=== PATIENT | female | born 1940 | race Caucasian/White ===

== ENCOUNTER → 2020-04-13 | Outpatient (CLI) | payer MEDICARE, OTHER ==
[~2020-04-13] MED LIST: AMOCLA875 PO; CALCIUM 600 +1 EAC6 PO; OMEP20ER PO; ONDA4ODT MM; PANT20 PO; PHAZYME250 MG PO; PRAV20 PO; Vitamin D2000 UNIT PO
[2020-04-13 12:55] LABS: Source, Urine Clean Catch
[2020-04-13 14:26] LABS: Appearance, Urine Clear (Clear); Bilirubin, Urine Neg (Neg); Blood, Urine 1+ (Neg); Color, Urine Yellow (P-Yellow); Glucose Qualitative, Urine Neg (Neg); Ketones, Urine Neg (Neg); Leukocyte Esterase, Urine 2+ (Neg); Nitrite, Urine Neg (Neg); Protein, Urine Neg (Neg); Urobilinogen, Urine NORM (Normal)
[2020-04-13 14:49] LABS: Bacteria Rare /hpf; Red Blood Cells, Urine Not Seen /hpf (0-2); Squamous Epithelial Cells Few /hpf (Few); White Blood Cells, Urine 0-2 /hpf (0-5)
== END | disposition home or self-care (01) ==
LOC: LAB SHORT 12:53 → LAB 12:53
PROVIDERS: Family Medicine
DX: R30.0 Dysuria (principal)
CPT/HCPCS: 81001; 87086

== ENCOUNTER 2020-06-08 12:17 | Day surgery (SDC) | payer MEDICARE, OTHER ==
[~2020-06-08] VITALS: Ht 154.9 cm; Wt 63.2 kg
--- NOTE | 2020-06-08 13:26 | NUR ---
06/08/20 [id number] Ashley Aldrich DISCUSSED WITH DR LORENZO THAT THE IV THAT WAS PLACED IS ONLY A 20GAUGE AND I REALIZED AFTER STARTING IT THAT IT SHOULD HAVE BEEN AN 18GAUGE. HE STATED HE WAS FINE WITH THIS AND NO NEED TO CHANGE AT THIS TIME
--- NOTE | 2020-06-08 14:54 | NUR ---
06/08/20 1454 Louisa Doty PT UP TO USE THE RESTROOM.
== END 2020-06-08 15:16 | disposition home or self-care (01) ==
LOC: ORSCSDS 12:17
PROVIDERS: Obstetrics & Gynecology
PROC: 0UJH7ZZ Inspection of Vagina and Cul-de-sac, Via Natural or Artificial Opening (ICD-10-PCS; principal; 2020-06-08 13:45)
PROC: 0TJB8ZZ Inspection of Bladder, Via Natural or Artificial Opening Endoscopic (ICD-10-PCS; principal; 2020-06-08 13:45)
DX: R93.89 Abnormal findings on diagnostic imaging of other specified body structures (principal); N88.2 Stricture and stenosis of cervix uteri; I10 Essential (primary) hypertension; E78.5 Hyperlipidemia, unspecified; K21.9 Gastro-esophageal reflux disease without esophagitis; Z79.899 Other long term (current) drug therapy
CPT/HCPCS: J1100; J2250; J2405; J2704; J3010; J7120

== ENCOUNTER 2020-12-13 08:52 | Day surgery (SDC) | payer MEDICARE, OTHER ==
[~2020-12-13] VITALS: Ht 154.9 cm; Wt 62.6 kg
[2020-12-13] MEDS ORDERED: One-A-Day Wome1 EACH PO (09:24)
[2020-12-13] MEDS ORDERED: ACET500 PO (09:25)
--- NOTE | 2020-12-13 12:16 | NUR ---
12/13/20 1216 Tatiana Marsh FRANZ CATHETER PLACED INTRAOPERATIVELY BY DR. JOE WHITE
--- NOTE | 2020-12-13 15:26 | NUR ---
RECEIVED PT FROM [facility] AT 1415. PT A/O X4 BUT SHIVERING QUITE A BIT. LAP SITES X3 CDI.
[2020-12-13] MEDS ORDERED: OXAYDO5 M1 PO (17:59)
[2020-12-13] MEDS ORDERED: IBUP600 PO (18:00)
--- NOTE | 2020-12-13 18:30 | NUR ---
SHIFT SUMMARY PT STATUS POST FOR LAP HYSTER WITH OOPHORECTOMY. SHE IS ABLE TO AMBULATE TO THE BATHROOM AND IS TOLERATING PO INTAKE WELL. FRANZ DC'D AND SHE HAS NOT BEEN ABLE TO VOID YET. IF PATIENT IS ABLE TO VOID SHE WILL BE ABLE TO DC HOME. VSS. PAIN TREATED WITH ORAL PAIN MEDS.
[2020-12-14] MEDS ORDERED: ONDA4ODT MM (08:37)
--- NOTE | 2020-12-14 09:32 | NUR ---
DISCHARGE SUMMARY PT POD #1 FOR LAP HYSTER WITH OOPHORECTOMY. PT REPORTS MILD PAIN THIS MORNING IN HER [place] FROM THE FRANZ SHE HAD IN YX. PAIN MANAGED WELL WITH PAIN MEDICATION. SLIGHT DRAINAGE IN R STERI STRIPS, OTHERWISE CDI. EPISODE OF NAUSEA WITH EMESIS THIS AM. CALLED AND RECEIVED ORDER FOR ZOFRAN, WHICH WAS CALLED INTO [facility]. IV DC'D WNL. DC'D HOME WITH AND DAUGHTER.
== END 2020-12-14 09:14 | disposition home or self-care (01) ==
LOC: ORSCMMR 08:52 → ORD 11:00 → ORSCMMR 11:00 → SURS 14:30 → ORSCMMR 12-14 09:14
PROVIDERS: Obstetrics & Gynecology
PROC: 0UT2FZZ Resection of Bilateral Ovaries, Via Natural or Artificial Opening With Percutaneous Endoscopic Assistance (ICD-10-PCS; principal; 2020-12-13 11:00)
PROC: 0UT7FZZ Resection of Bilateral Fallopian Tubes, Via Natural or Artificial Opening With Percutaneous Endoscopic Assistance (ICD-10-PCS; principal; 2020-12-13 11:00)
PROC: 0UT9FZZ Resection of Uterus, Via Natural or Artificial Opening With Percutaneous Endoscopic Assistance (ICD-10-PCS; principal; 2020-12-13 11:00)
DX: N95.0 Postmenopausal bleeding (principal); N85.00 Endometrial hyperplasia, unspecified; N83.292 Other ovarian cyst, left side; I10 Essential (primary) hypertension; Z79.899 Other long term (current) drug therapy
CPT/HCPCS: 88307; A9270; J0171; J0690; J1100; J1885; J2250; J2405; J2704; J3010; J7120